=== PATIENT | male | born 1960 | race Caucasian/White ===

== ENCOUNTER 2022-06-17 13:39 | Emergency (ER) | payer OTHER, MEDICAID ==
[~2022-06-17] VITALS: Ht 167.6 cm; Wt 65.0 kg
[2022-06-17] MEDS ORDERED: SODIUM CHLORIDE 0.9% 500 ML IVB ONE (14:45)
[2022-06-17 15:06] LABS: Basophils # (auto) 0.1 10 ^3/uL (0-0.2); Basophils % (auto) 0.6 % (0.0-2.0); Eosinophils # (auto) 0.1 10 ^3/uL (0-0.8); Hematocrit 42.4 % (41.0-53.0); Hemoglobin 14.3 g/dL (13.5-17.5); Lymphocytes # (auto) 1.9 10 ^3/uL (0.4-5.4); Lymphocytes % (auto) 15.9 % (10.0-50.0); Mean Corpuscular Hemoglobin 28.7 pg (28.0-32.0); Mean Corpuscular Hgb Conc. 33.6 g/dL (32.0-36.0); Mean Corpuscular Volume 85.4 fL (80.0-100.0); Monocytes # (auto) 1.1 10 ^3/uL (0-1.3); Monocytes % (auto) 9.2 % (0.0-12.0); Neutrophils % (auto) 73.3 % (37.0-80.0); Nucleated Red Blood Cells % 0.1 %; Red Blood Cells 4.97 10^6/uL (4.5-5.90); Red Cell Distribution Width 14.5 % (11.8-14.3); White Blood Cell 12.2 10^3/uL (4.4-10.8)
[2022-06-17 15:18] LABS: Albumin 3.7 g/dL (3.4-5.0); Calcium 9.5 mg/dL (8.5-10.1); Potassium 4.1 mmol/L (3.5-5.1)
[2022-06-17 15:21] LABS: BUN/Creatinine Ratio 18.1; Bilirubin, Total 0.5 mg/dL (0.2-1.0); Total Protein 6.8 g/dL (6.4-8.2)
[2022-06-17 15:50] LABS: Urine Specific Gravity 1.025 (1.001-1.035)
[2022-06-17 15:54] LABS: Urine Blood Negative /uL (Negative)
[2022-06-17] MEDS ORDERED: ONDA-144 PO (17:29)
[2022-06-17] MEDS ORDERED: PANT40TA2 PO (17:29)
[2022-06-17] MEDS ORDERED: SUCR1SUS5 PO (17:29)
[2022-06-17] MEDS ORDERED: ONDANSETRON HCL 4 MG/2 ML VIAL IV ONE (17:30)
[2022-06-17] MEDS ORDERED: PANTOPRAZOLE 40 MG/10 ML VIAL INJ IV ONE (17:30)
[2022-06-17] MEDS ORDERED: MORPHINE SULFATE 4 MG/ML SYR/VIAL IV ONE (17:30)
[2022-06-17] MEDS ORDERED: SUCRALFATE 1 GM TAB PO ONE (17:30)
[2022-06-17] MEDS ORDERED: LEVO500T31 PO (17:32)
[2022-06-17] MEDS ORDERED: METR500T PO (17:32)
[2022-06-17] MEDS ORDERED: metroNIDAZOLE 500 MG TAB PO ONE (17:45)
[2022-06-17] MEDS ORDERED: levoFLOXacin 500 MG TAB PO ONE (17:45)
[2022-06-17 19:06] VITALS: BP 148/75
== END 2022-06-17 19:20 | disposition home or self-care (01) ==
LOC: ER 13:39
DX: K29.70 Gastritis, unspecified, without bleeding (principal); J44.9 Chronic obstructive pulmonary disease, unspecified; I10 Essential (primary) hypertension; I25.2 Old myocardial infarction; E78.5 Hyperlipidemia, unspecified; E03.9 Hypothyroidism, unspecified; F17.210 Nicotine dependence, cigarettes, uncomplicated; Z90.49 Acquired absence of other specified parts of digestive tract; Z95.0 Presence of cardiac pacemaker; Z79.2 Long term (current) use of antibiotics; Z79.899 Other long term (current) drug therapy
CPT/HCPCS: 36415; 74176; 80053; 81003; 82150; 83036; 83690; 85025; 93005; 96361; 96374; 96375; 99285; C9113; J2270; J2405; J7040

== ENCOUNTER 2022-07-11 15:08 | Emergency (ER) | payer OTHER, MEDICAID ==
[~2022-07-11] VITALS: Ht 167.6 cm; Wt 68.0 kg
[~2022-07-11 15:08] MED LIST: LEVO500T31 PO; METR500T PO; ONDA-144 PO; PANT40TA2 PO; SUCR1SUS5 PO
[2022-07-11] MEDS ORDERED: ONDANSETRON HCL 4 MG/2 ML VIAL IV ONE (15:30)
[2022-07-11] MEDS ORDERED: MORPHINE SULFATE INJ 2 MG/ml SYRG IV ONE ×2 (15:30→17:45)
[2022-07-11] MEDS ORDERED: IOHEXOL 300 MG/ML 100ML BOTTLE IJ ONE (16:01)
[2022-07-11 16:11] LABS: Basophils # (auto) 0 10 ^3/uL (0-0.2); Basophils % (auto) 0.2 % (0.0-2.0); Eosinophils # (auto) 0.1 10 ^3/uL (0-0.8); Eosinophils % (auto) 0.7 % (0.0-7.0); Hematocrit 38.3 % (41.0-53.0); Hemoglobin 12.5 g/dL (13.5-17.5); Lymphocytes # (auto) 1.4 10 ^3/uL (0.4-5.4); Lymphocytes % (auto) 7.7 % (10.0-50.0); Mean Corpuscular Hemoglobin 28.3 pg (28.0-32.0); Mean Corpuscular Hgb Conc. 32.7 g/dL (32.0-36.0); Mean Corpuscular Volume 86.6 fL (80.0-100.0); Monocytes # (auto) 0.8 10 ^3/uL (0-1.3); Monocytes % (auto) 4.7 % (0.0-12.0); Neutrophils # (auto) 15.2 10 ^3/uL (1.6-8.6); Neutrophils % (auto) 86.7 % (37.0-80.0); Nucleated Red Blood Cells % 0.1 %; Red Blood Cells 4.43 10^6/uL (4.5-5.90); Red Cell Distribution Width 15.2 % (11.8-14.3); White Blood Cell 17.5 10^3/uL (4.4-10.8)
[2022-07-11 16:13] LABS: INR 1.08 (0.9-1.15); Partial Thromboplastin Time 22.8 sec (24.6-33.4)
[2022-07-11] MEDS ORDERED: OXY5T PO (16:59)
[2022-07-11] MEDS ORDERED: ASPI-498 PO (16:59)
[2022-07-11] MEDS ORDERED: TRAZ-181 PO (16:59)
[2022-07-11] MEDS ORDERED: DULO60CA PO (16:59)
[2022-07-11] MEDS ORDERED: LATA0.0019 EACHEYE (16:59)
[2022-07-11] MEDS ORDERED: DORZ2SOL18 EACHEYE (16:59)
[2022-07-11 17:00] LABS: Alanine Aminotransferase 63 U/L (16-61); Albumin 3.4 g/dL (3.4-5.0); Anion Gap 9 (5-15); Aspartate Aminotransferase 66 U/L (15-37); Blood Urea Nitrogen 19 mg/dL (7-18); Calcium 8.8 mg/dL (8.5-10.1); Carbon Dioxide 23 mmol/L (21-32); Chloride 107 mmol/L (98-107); GFR African American 103 mL/min; GFR Non-African American 85 mL/min; Glucose 149 mg/dL (74-106); Potassium 4.1 mmol/L (3.5-5.1); Sodium 139 mmol/L (136-145)
[2022-07-11] MEDS ORDERED: GABA-339 PO (17:01)
[2022-07-11] MEDS ORDERED: LIDO5PAD8 EX (17:01)
[2022-07-11] MEDS ORDERED: ATOR10TA PO (17:01)
[2022-07-11] MEDS ORDERED: BENA40TA8 PO (17:01)
[2022-07-11] MEDS ORDERED: SUCR1TAB22 PO (17:01)
[2022-07-11 17:02] LABS: Urine Bacteria FEW /hpf (None Seen); Urine Blood 1+ /uL (Negative); Urine Specific Gravity 1.017 (1.001-1.035); Urine Sperm PRESENT /hpf (None Seen); Urine WBC 1 /hpf (0 - 3)
[2022-07-11 17:04] LABS: Alkaline Phosphatase 138 U/L (45-117); Bilirubin, Total 0.5 mg/dL (0.2-1.0); Total Protein 6.6 g/dL (6.4-8.2)
[2022-07-11] MEDS ORDERED: HYDROmorphone HCL 2 MG/ML VL/or syr IV ONE ×2 (19:30→21:30)
[2022-07-12 00:14] VITALS: BP 137/73
[2022-07-12] MEDS ORDERED: HYDROmorphone HCL 2 MG/ML VL/or syr IV ONE (00:15)
== END 2022-07-12 00:05 | disposition short-term general hospital (02) ==
LOC: EDBD 15:08 → ER 15:09
DX: S22.42XA Multiple fractures of ribs, left side, initial encounter for closed fracture (principal); S42.002A Fracture of unspecified part of left clavicle, initial encounter for closed fracture; S32.049A Unspecified fracture of fourth lumbar vertebra, initial encounter for closed fracture; S22.079A Unspecified fracture of T9-T10 vertebra, initial encounter for closed fracture; Z20.822 Contact with and (suspected) exposure to COVID-19; V86.59XA Driver of other special all-terrain or other off-road motor vehicle injured in nontraffic accident, initial encounter; Y93.89 Activity, other specified; Y92.488 Other paved roadways as the place of occurrence of the external cause; Y99.8 Other external cause status
CPT/HCPCS: 36415; 70450; 71260; 72125; 74177; 80053; 81001; 82550; 83605; 84484; 85025; 85610; 85730; 86850; 86900; 86901; 87426; 93005; 96374; 96375; 96376; 99285; J1170; J2270; J2405; Q9967

== ENCOUNTER 2022-10-06 15:44 | Inpatient (IN) | payer OTHER, MEDICAID ==
[~2022-10-06] VITALS: Ht 167.6 cm; Wt 68.0 kg
[~2022-10-06 15:44] MED LIST changes: +ASPI-498 PO; +ATOR10TA PO; +BENA40TA8 PO; +DORZ2SOL18 EACHEYE; +DULO60CA PO; +GABA-339 PO; +LATA0.0019 EACHEYE; +LIDO5PAD8 EX; +OXY5T PO; +TRAZ-181 PO
[2022-10-06 16:15] LABS: Basophils # (auto) 0.1 10 ^3/uL (0-0.2); Basophils % (auto) 0.6 % (0.0-2.0); Eosinophils # (auto) 0.2 10 ^3/uL (0-0.8); Hematocrit 40.6 % (41.0-53.0); Hemoglobin 13.3 g/dL (13.5-17.5); Lymphocytes # (auto) 1.8 10 ^3/uL (0.4-5.4); Lymphocytes % (auto) 20.1 % (10.0-50.0); Mean Corpuscular Hemoglobin 26.2 pg (28.0-32.0); Mean Corpuscular Hgb Conc. 32.8 g/dL (32.0-36.0); Mean Corpuscular Volume 79.8 fL (80.0-100.0); Monocytes # (auto) 0.9 10 ^3/uL (0-1.3); Monocytes % (auto) 10.3 % (0.0-12.0); Neutrophils # (auto) 6.1 10 ^3/uL (1.6-8.6); Nucleated Red Blood Cells % 0.4 %; Red Cell Distribution Width 14.5 % (11.8-14.3); White Blood Cell 9.1 10^3/uL (4.4-10.8)
[2022-10-06 16:32] LABS: INR 1.04 (0.9-1.15); Partial Thromboplastin Time 31.2 sec (24.6-33.4)
[2022-10-06 16:36] LABS: Albumin 3.6 g/dL (3.4-5.0); BUN/Creatinine Ratio 16.9 (10.0-20.0); Calcium 9.9 mg/dL (8.5-10.1); Magnesium 1.7 mg/dL (1.6-2.6); Potassium 4.5 mmol/L (3.5-5.1)
[2022-10-06 16:44] LABS: Bilirubin, Total 0.4 mg/dL (0.2-1.0)
[2022-10-06] MEDS ORDERED: ENOXAPARIN SOD 80 MG/0.8ML SYRINGE SC ONE (17:45)
[2022-10-06] MEDS ORDERED: NITROGLYCERIN 0.4 MG SL TAB SL PRN (18:00)
[2022-10-06] MEDS ORDERED: ONDANSETRON HCL 4 MG/2 ML VIAL IV PRN (18:00)
[2022-10-06] MEDS ORDERED: ACETAMINOPHEN 325 MG TAB PO PRN (18:00)
[2022-10-06 19:11] LABS: Urine Bacteria NONE SEEN /hpf (None Seen); Urine Blood 3+ /uL (Negative); Urine Hyaline Cast FEW /lpf (0 - 2); Urine Mucus FEW (None Seen); Urine Specific Gravity 1.022 (1.001-1.035); Urine WBC 65 /hpf (0 - 3)
[2022-10-06] MEDS ORDERED: hydrALAZINE HCL 20 MG/ML VL IV PRN (19:45)
[2022-10-06] MEDS ORDERED: ALBUTEROL SULF 2.5 MG/0.5ML(0.5%) NEB SOLN NEB PRN (19:45)
[2022-10-06] MEDS ORDERED: NITROGLYCERIN 0.4MG/HR TOPICAL PATCH TD ONE (19:45)
[2022-10-06] MEDS ORDERED: cefTRIAXone 1GM/50ML D5W 50 ML IV ONE (19:45)
[2022-10-06] MEDS ORDERED: IPRATROPIUM BROM 0.5 MG/2.5ML INH SOL NEB PRN (19:45)
[2022-10-06] MEDS ORDERED: PANTOPRAZOLE 40 MG/10 ML VIAL INJ IV ONE (19:45)
[2022-10-06] MEDS ORDERED: ATOR10TA52 PO (20:34)
[2022-10-06] MEDS ORDERED: FAMO20TA10 PO (20:34)
[2022-10-06 21:13] LABS: Cholesterol 128 mg/dL (< 200); HDL Cholesterol 60 mg/dL (40-59); LDL Cholesterol 62 mg/dL (< 100); Triglycerides 70 mg/dL (< 150)
[2022-10-06] MEDS: ATORVASTATIN 20 MG TAB PO SCH (22:20)
[2022-10-06] MEDS: ENOXAPARIN SOD 80 MG/0.8ML SYRINGE SC SCH (22:21)
[2022-10-06] MEDS: MORPHINE SULFATE INJ 2 MG/ml SYRG IV PRN (22:29)
[2022-10-07] MEDS: SODIUM CHLORIDE 0.9% 1,000 ML IV SCH ×3 (03:24→21:14)
[2022-10-07 04:22] VITALS: BP 101/60
[2022-10-07 06:05] LABS: Basophils # (auto) 0.1 10 ^3/uL (0-0.2); Basophils % (auto) 0.7 % (0.0-2.0); Lymphocytes # (auto) 2.5 10 ^3/uL (0.4-5.4); Monocytes # (auto) 1.2 10 ^3/uL (0-1.3); Monocytes % (auto) 11.7 % (0.0-12.0); Nucleated Red Blood Cells % 0.1 %
[2022-10-07 06:07] LABS: Eosinophils # (auto) 0.3 10 ^3/uL (0-0.8); Eosinophils % (auto) 2.4 % (0.0-7.0); Hematocrit 37.8 % (41.0-53.0); Hemoglobin 12.6 g/dL (13.5-17.5); Lymphocytes % (auto) 23.8 % (10.0-50.0); Mean Corpuscular Hemoglobin 26.5 pg (28.0-32.0); Mean Corpuscular Hgb Conc. 33.3 g/dL (32.0-36.0); Mean Corpuscular Volume 79.4 fL (80.0-100.0); Neutrophils # (auto) 6.4 10 ^3/uL (1.6-8.6); Neutrophils % (auto) 61.4 % (37.0-80.0); Red Blood Cells 4.76 10^6/uL (4.5-5.90); Red Cell Distribution Width 14.3 % (11.8-14.3); White Blood Cell 10.4 10^3/uL (4.4-10.8)
[2022-10-07 06:26] LABS: Albumin 3.3 g/dL (3.4-5.0); Calcium 9.7 mg/dL (8.5-10.1); Potassium 3.6 mmol/L (3.5-5.1)
[2022-10-07 06:31] LABS: BUN/Creatinine Ratio 19.4 (10.0-20.0); Bilirubin, Total 0.4 mg/dL (0.2-1.0); Total Protein 6.8 g/dL (6.4-8.2)
[2022-10-07] MEDS: MORPHINE SULFATE INJ 2 MG/ml SYRG IV PRN (07:05)
[2022-10-07] MEDS ORDERED: ENOXAPARIN SOD 40 MG/0.4 ML SYRINGE SC SCH (10:00)
[2022-10-07] MEDS: ASPirin 81 mg TAB PO SCH (10:02)
[2022-10-07] MEDS: PANTOPRAZOLE 40 MG/10 ML VIAL INJ IV SCH (10:02)
[2022-10-07] MEDS: cefTRIAXone 1GM/50ML D5W 50 ML IV SCH (10:02)
[2022-10-07] MEDS: DULoxetine HCL 30 MG CAP PO SCH (10:03)
[2022-10-07] MEDS: BENAZEPRIL HCL 10 MG TAB PO SCH (10:03)
[2022-10-07] MEDS: ENOXAPARIN SOD 80 MG/0.8ML SYRINGE SC SCH (10:04)
[2022-10-07] MEDS: oxyCODONE ER 10 MG TAB PO PRN ×2 (10:04→22:09)
[2022-10-07 13:11] VITALS: BP 123/73
[2022-10-07 14:25] VITALS: BP 138/81
[2022-10-07 17:02] VITALS: BP 138/81
[2022-10-07 22:00] VITALS: BP 106/67
[2022-10-07] MEDS: ATORVASTATIN 20 MG TAB PO SCH (22:09)
[2022-10-08 05:03] VITALS: BP 132/82
[2022-10-08 09:00] VITALS: BP 156/80
[2022-10-08] MEDS: MORPHINE SULFATE INJ 2 MG/ml SYRG IV PRN (09:54)
[2022-10-08] MEDS: PANTOPRAZOLE 40 MG/10 ML VIAL INJ IV SCH (09:54)
[2022-10-08] MEDS: cefTRIAXone 1GM/50ML D5W 50 ML IV SCH (09:55)
[2022-10-08] MEDS: DULoxetine HCL 30 MG CAP PO SCH (09:56)
[2022-10-08] MEDS: BENAZEPRIL HCL 10 MG TAB PO SCH (09:56)
[2022-10-08] MEDS: ASPirin 81 mg TAB PO SCH (09:57)
[2022-10-08] MEDS: SODIUM CHLORIDE 0.9% 1,000 ML IV SCH ×2 (10:00→23:02)
[2022-10-08] MEDS: ENOXAPARIN SOD 40 MG/0.4 ML SYRINGE SC SCH (10:00)
[2022-10-08] MEDS: oxyCODONE ER 10 MG TAB PO PRN ×2 (11:00→23:56)
[2022-10-08] MEDS: HYDROmorphone HCL 2 MG/ML VL/or syr IV PRN ×2 (12:00→20:21)
[2022-10-08 13:00] VITALS: BP 158/88
[2022-10-08] MEDS ORDERED: CIPROFLOXACIN 400MG/200ML 200 ML IV ONE (15:36)
[2022-10-08] MEDS ORDERED: DexAMETHasone SOD PHOS 10MG/1ML VIAL INJ ONE (15:47)
[2022-10-08] MEDS ORDERED: GLYCOPYRROLATE 0.2 MG/ML 1ML VIAL ONE (15:47)
[2022-10-08] MEDS ORDERED: KETOROLAC TROMETH 30 MG/ML 1ML VIAL ONE (15:47)
[2022-10-08] MEDS ORDERED: MIDAZOLAM HCL 2MG/2ML 2ml VIAL (1mg/ml) ONE (15:47)
[2022-10-08] MEDS ORDERED: PROPOFOL 10 MG/ML 20 ML IV ONE (15:47)
[2022-10-08] MEDS ORDERED: ONDANSETRON HCL 4 MG/2 ML VIAL ONE (15:47)
[2022-10-08] MEDS ORDERED: LIDOCAINE 2% (LOCAL ANESTH.) PF 5ml SDV ONE (15:47)
[2022-10-08] MEDS ORDERED: fentaNYL CITRATE 100 MCG/2 ML VL ONE (15:47)
[2022-10-08] MEDS ORDERED: MEPERIDINE HCL (50 MG/ML) 1 ML VIAL ONE (16:12)
[2022-10-08] MEDS ORDERED: IOHEXOL 300 MG/ML 100ML BOTTLE IJ ONE (16:25)
[2022-10-08] MEDS ORDERED: HYDROmorphone HCL 2 MG/ML VL/or syr ONE (17:25)
[2022-10-08] MEDS ORDERED: HYDROmorphone HCL 2 MG/ML VL/or syr IV PRN (17:30)
[2022-10-08] MEDS ORDERED: ONDANSETRON HCL 4 MG/2 ML VIAL IV PRN (17:30)
[2022-10-08] MEDS ORDERED: HYDROmorphone HCL 2 MG/ML VL/or syr IV ONE ×2 (17:30→17:38)
[2022-10-08] MEDS ORDERED: MANNITOL FTV 25% 12.5 GM/50 ML 50 ML IV ONE (18:30)
[2022-10-08] MEDS: ATORVASTATIN 20 MG TAB PO SCH (21:27)
[2022-10-08 22:00] VITALS: BP 129/69
[2022-10-09] MEDS: HYDROmorphone HCL 2 MG/ML VL/or syr IV PRN ×3 (01:00→10:02)
[2022-10-09 05:00] VITALS: BP 137/68
[2022-10-09 08:00] VITALS: BP 154/78
[2022-10-09 08:30] VITALS: BP 103/56
[2022-10-09] MEDS: cefTRIAXone 1GM/50ML D5W 50 ML IV SCH (08:30)
[2022-10-09] MEDS ORDERED: LEVO750T8 PO (08:31)
[2022-10-09] MEDS: PANTOPRAZOLE 40 MG/10 ML VIAL INJ IV SCH (09:32)
[2022-10-09] MEDS: ASPirin 81 mg TAB PO SCH (09:33)
[2022-10-09] MEDS: BENAZEPRIL HCL 10 MG TAB PO SCH (09:33)
[2022-10-09] MEDS: DULoxetine HCL 30 MG CAP PO SCH (09:33)
[2022-10-09] MEDS: ENOXAPARIN SOD 40 MG/0.4 ML SYRINGE SC SCH (09:34)
[2022-10-09 12:17] VITALS: BP 154/78
[2022-10-09 12:30] VITALS: BP 126/73
== END 2022-10-09 13:00 | disposition home or self-care (01) | DRG 697 ==
LOC: ER 15:44 → TELE 19:02 → TELE-WESTW 10-07 13:11
PROVIDERS: ADMIT Internal Medicine; ATTEND Internal Medicine
PROC: 0TF68ZZ Fragmentation in Right Ureter, Via Natural or Artificial Opening Endoscopic (ICD-10-PCS; principal; 2022-10-08 16:00)
DX: N35.919 Unspecified urethral stricture, male, unspecified site (principal); I24.9 Acute ischemic heart disease, unspecified; N20.2 Calculus of kidney with calculus of ureter; N39.0 Urinary tract infection, site not specified; I25.110 Atherosclerotic heart disease of native coronary artery with unstable angina pectoris; I10 Essential (primary) hypertension; G56.00 Carpal tunnel syndrome, unspecified upper limb; F17.210 Nicotine dependence, cigarettes, uncomplicated; R79.89 Other specified abnormal findings of blood chemistry; E78.5 Hyperlipidemia, unspecified; Z20.822 Contact with and (suspected) exposure to COVID-19; J44.9 Chronic obstructive pulmonary disease, unspecified; Z91.030 Bee allergy status; I25.2 Old myocardial infarction; Z91.018 Allergy to other foods; Z80.1 Family history of malignant neoplasm of trachea, bronchus and lung; Z83.3 Family history of diabetes mellitus; Z87.11 Personal history of peptic ulcer disease; Z95.0 Presence of cardiac pacemaker; Z98.84 Bariatric surgery status; Z90.49 Acquired absence of other specified parts of digestive tract
CPT/HCPCS: 36415; 70450; 71045; 74018; 74176; 76000; 78582; 80053; 80061; 81001; 82962; 83036; 83735; 83880; 84443; 84484; 85025; 85379; 85610; 85730; 87040; 87081; 87086; 87426; 93005; 93306; 93970; 96365; 96366; 96372; 96375; 96376; C9113; G0378; J0696; J1100; J1885; J2001; J2250; J2405; J2704

== ENCOUNTER 2022-12-27 19:48 | Inpatient (IN) | payer OTHER, MEDICAID ==
[~2022-12-27] VITALS: Ht 167.6 cm; Wt 56.0 kg
[~2022-12-27 19:48] MED LIST changes: +ATOR10TA52 PO; +BENA40TA70 PO; -BENA40TA8 PO; -DULO60CA PO; +DULO60CA41 PO; +FAMO20TA10 PO; -LATA0.0019 EACHEYE; +LATA0.008 EACHEYE; -LEVO500T31 PO; +LEVO750T8 PO
[2022-12-27] MEDS ORDERED: PANTOPRAZOLE 80 MG in SODIUM CHL 0.9% 100 ML IV ONE (21:00)
[2022-12-27] MEDS ORDERED: OCTREOTIDE ACETATE 100 MCG in SODIUM CHL 0.9% 50 ML IV ONE (21:00)
[2022-12-27] MEDS ORDERED: PANTOPRAZOLE 40mg/50ML NS AE 50 ML IV ONE (21:00)
[2022-12-27 21:24] LABS: Urine Bacteria NONE SEEN /hpf (None Seen); Urine Blood Negative /uL (Negative); Urine Hyaline Cast FEW /lpf (0 - 2); Urine Mucus FEW (None Seen); Urine Specific Gravity 1.019 (1.001-1.035); Urine WBC 3 /hpf (0 - 3)
[2022-12-27 21:24] LABS: Basophils # (auto) 0.1 10 ^3/uL (0-0.2); Eosinophils # (auto) 0.2 10 ^3/uL (0-0.8); Lymphocytes # (auto) 2.1 10 ^3/uL (0.4-5.4); Mean Corpuscular Hgb Conc. 31.5 g/dL (32.0-36.0); Nucleated Red Blood Cells % 0.1 %; Red Blood Cells 2.08 10^6/uL (4.5-5.90)
[2022-12-27 21:27] LABS: Basophils % (auto) 0.5 % (0.0-2.0); Eosinophils % (auto) 1.7 % (0.0-7.0); Hematocrit 15.4 % (41.0-53.0); Lymphocytes % (auto) 19.5 % (10.0-50.0); Mean Corpuscular Hemoglobin 23.3 pg (28.0-32.0); Mean Corpuscular Volume 74.2 fL (80.0-100.0); Monocytes # (auto) 0.8 10 ^3/uL (0-1.3); Monocytes % (auto) 7.1 % (0.0-12.0); Neutrophils # (auto) 7.8 10 ^3/uL (1.6-8.6); Neutrophils % (auto) 71.2 % (37.0-80.0); Red Cell Distribution Width 16.2 % (11.8-14.3)
[2022-12-27 21:28] LABS: INR 0.97 (0.9-1.15); Partial Thromboplastin Time 27.7 sec (24.6-33.4)
[2022-12-27 21:40] LABS: Albumin 2.4 g/dL (3.4-5.0); Calcium 7.6 mg/dL (8.5-10.1); Potassium 4.7 mmol/L (3.5-5.1)
[2022-12-27 21:44] LABS: BUN/Creatinine Ratio 21.7 (10.0-20.0); Bilirubin, Total 0.1 mg/dL (0.2-1.0); Total Protein 5.6 g/dL (6.4-8.2)
[2022-12-27 21:53] LABS: Hemoglobin 4.9 g/dL (13.5-17.5)
[2022-12-27] MEDS ORDERED: PIPERACILLIN-TAZOB 3.375GM 100 ML IV ONE (22:00)
[2022-12-27 23:40] VITALS: BP 125/52
[2022-12-27] MEDS ORDERED: NITROGLYCERIN 0.4 MG SL TAB SL PRN (23:45)
[2022-12-27] MEDS ORDERED: SOD CHL 0.45% 1,000 ML IV ONE (23:45)
[2022-12-27] MEDS ORDERED: MORPHINE SULFATE INJ 2 MG/ml SYRG IV PRN (23:45)
[2022-12-27 23:50] VITALS: BP 124/62
[2022-12-27] MEDS ORDERED: PANTOPRAZOLE 40 MG/10 ML VIAL INJ IV ONE (23:52)
[2022-12-27] MEDS ORDERED: OCTREOTIDE ACETATE 100 MCG/ML VL ONE (23:52)
[2022-12-27] MEDS ORDERED: OCTREOTIDE ACETATE 500 MCG/ML VL ONE (23:52)
[2022-12-27] MEDS: IPRATROPIUM BROM 0.5 MG/2.5ML INH SOL NEB SCH (23:57)
[2022-12-27] MEDS: ALBUTEROL SULF 2.5 MG/0.5ML(0.5%) NEB SOLN NEB SCH (23:57)
[2022-12-28] VITALS (12 sets, daily range): BP systolic 124–156; BP diastolic 62–85
[2022-12-28] MEDS ORDERED: ONDANSETRON HCL 4 MG/2 ML VIAL IV PRN
[2022-12-28] MEDS: OCTREOTIDE ACETATE 500 MCG in SODIUM CHL 0.9% 99 ML IV SCH ×4 (00:09→09:15)
[2022-12-28] MEDS: ALBUTEROL SULF 2.5 MG/0.5ML(0.5%) NEB SOLN NEB SCH ×2 (05:24→11:24)
[2022-12-28] MEDS: IPRATROPIUM BROM 0.5 MG/2.5ML INH SOL NEB SCH ×2 (05:24→11:24)
[2022-12-28 07:23] LABS: Basophils # (auto) 0.1 10 ^3/uL (0-0.2); Basophils % (auto) 0.6 % (0.0-2.0); Eosinophils % (auto) 1.7 % (0.0-7.0); Lymphocytes # (auto) 1.2 10 ^3/uL (0.4-5.4); Lymphocytes % (auto) 13.2 % (10.0-50.0); Nucleated Red Blood Cells % 0.1 %
[2022-12-28 07:27] LABS: Eosinophils # (auto) 0.1 10 ^3/uL (0-0.8); Hematocrit 27.4 % (41.0-53.0); Hemoglobin 8.8 g/dL (13.5-17.5); Mean Corpuscular Hemoglobin 26.3 pg (28.0-32.0); Mean Corpuscular Hgb Conc. 32.3 g/dL (32.0-36.0); Mean Corpuscular Volume 81.3 fL (80.0-100.0); Monocytes # (auto) 0.7 10 ^3/uL (0-1.3); Monocytes % (auto) 7.5 % (0.0-12.0); Neutrophils # (auto) 6.7 10 ^3/uL (1.6-8.6); Red Blood Cells 3.37 10^6/uL (4.5-5.90); White Blood Cell 8.8 10^3/uL (4.4-10.8)
[2022-12-28 07:38] LABS: Albumin 2.2 g/dL (3.4-5.0); Calcium 7.6 mg/dL (8.5-10.1); Potassium 4.6 mmol/L (3.5-5.1)
[2022-12-28 07:41] LABS: Bilirubin, Total 0.7 mg/dL (0.2-1.0); Total Protein 5.3 g/dL (6.4-8.2)
[2022-12-28] MEDS: MORPHINE SULFATE INJ 2 MG/ml SYRG IV PRN ×2 (08:00→09:19)
[2022-12-28] MEDS ORDERED: LIDOCAINE VISCOUS 2% 15ML UD ONE (09:28)
[2022-12-28] MEDS ORDERED: SODIUM CHLORIDE LOCK 10 ML ONE (09:28)
[2022-12-28] MEDS ORDERED: diphenhdrAMINE HCL 50 MG/1 ML VL ONE ×2 (09:29→09:31)
[2022-12-28] MEDS ORDERED: EPINEPHrine HCL 1 MG/10 ML SYRG ONE (09:30)
[2022-12-28] MEDS: fentaNYL CITRATE 100 MCG/2 ML VL ONE ×2 (09:36→09:39)
[2022-12-28] MEDS: MIDAZOLAM HCL 5 MG/ML-1ML VIAL ONE ×2 (09:36→09:39)
[2022-12-28] MEDS ORDERED: SUCR1SUS26 PO (09:49)
[2022-12-28] MEDS ORDERED: PANT40TA2 PO (09:49)
[2022-12-28 09:50] LABS: BUN/Creatinine Ratio 22.6 (10.0-20.0)
[2022-12-28] MEDS ORDERED: cefTRIAXone 1GM/50ML D5W 50 ML IV SCH (10:00)
[2022-12-28] MEDS ORDERED: PANTOPRAZOLE 40 MG/10 ML VIAL INJ IV SCH (10:00)
== END 2022-12-28 14:28 | disposition home health service (06) | DRG 378 ==
LOC: ER 19:52 → TELE 23:44
PROVIDERS: ADMIT Internal Medicine; ATTEND Internal Medicine
PROC: 30233N1 Transfusion of Nonautologous Red Blood Cells into Peripheral Vein, Percutaneous Approach (ICD-10-PCS; 2022-12-27)
PROC: 0DJ08ZZ Inspection of Upper Intestinal Tract, Via Natural or Artificial Opening Endoscopic (ICD-10-PCS; principal; 2022-12-28 09:00)
DX: K28.4 Chronic or unspecified gastrojejunal ulcer with hemorrhage (principal); D62 Acute posthemorrhagic anemia; N39.0 Urinary tract infection, site not specified; E78.5 Hyperlipidemia, unspecified; J44.9 Chronic obstructive pulmonary disease, unspecified; I10 Essential (primary) hypertension; E11.9 Type 2 diabetes mellitus without complications; F17.210 Nicotine dependence, cigarettes, uncomplicated; I25.10 Atherosclerotic heart disease of native coronary artery without angina pectoris; I25.2 Old myocardial infarction; Z80.1 Family history of malignant neoplasm of trachea, bronchus and lung; Z87.442 Personal history of urinary calculi; Z90.49 Acquired absence of other specified parts of digestive tract; Z95.0 Presence of cardiac pacemaker; Z98.84 Bariatric surgery status
CPT/HCPCS: 36415; 71045; 74176; 80053; 81001; 83605; 83880; 84484; 85025; 85610; 85730; 86850; 86900; 86901; 86920; 87040; 94640; 96365; 96366; 96368; 99291; C9113; G0378; J0696; J2250; J2405; J2543